=== PATIENT | female | born 1945 | race Hispanic/Latino ===

== ENCOUNTER 2021-09-14 17:32 | Emergency (ER) | payer MEDICARE, OTHER ==
[~2021-09-14] VITALS: Ht 157.5 cm; Wt 84.4 kg
[~2021-09-14 17:32] MED LIST: GLYBURIDE-METF1 EAC1 PO; METOPROLOL TART25 MG PO
[2021-09-14] MEDS ORDERED: ACETAMINOPHEN 325 MG TAB PO ONE (18:00)
[2021-09-14] MEDS ORDERED: TETANUS/DIPHTHERIA TOX ADULT 0.5 ML SYR IM ONE (18:00)
[2021-09-14] MEDS ORDERED: ONDANSETRON HCL INJ 2MG/ML 2ML 2 MG/ML VIAL IV STA (20:28)
[2021-09-14] MEDS ORDERED: HYDRALAZINE HCL 20 MG/ML VIAL IV STA (20:28)
[2021-09-14] MEDS ORDERED: Morphine 2mg Syringe 2 MG/ML SYR IV ONE (20:30)
[2021-09-14] MEDS ORDERED: SODIUM CHLORIDE 0.9% 1000ML 1,000 ML ONE (20:31)
[2021-09-14] MEDS ORDERED: HYDRALAZINE HCL 20 MG/ML VIAL ONE (20:42)
[2021-09-14] MEDS ORDERED: Morphine 2mg Syringe 2 MG/ML SYR ONE (20:42)
[2021-09-14] MEDS ORDERED: ONDANSETRON HCL INJ 2MG/ML 2ML 2 MG/ML VIAL ONE (20:42)
[2021-09-14 20:52] VITALS: BP 171/90
== END 2021-09-14 20:59 | disposition other institution (70) ==
LOC: ER 18:31
DX: S12.500A Unspecified displaced fracture of sixth cervical vertebra, initial encounter for closed fracture (principal); S01.511A Laceration without foreign body of lip, initial encounter; W01.0XXA Fall on same level from slipping, tripping and stumbling without subsequent striking against object, initial encounter; Y93.01 Activity, walking, marching and hiking; Y92.008 Other place in unspecified non-institutional (private) residence as the place of occurrence of the external cause; I10 Essential (primary) hypertension; E11.9 Type 2 diabetes mellitus without complications; I48.91 Unspecified atrial fibrillation; E03.9 Hypothyroidism, unspecified
CPT/HCPCS: 70450; 70486; 72125; 73560 ×2; 90471; 90714; 99285; J0360; J2270; J2405; J7030